=== PATIENT | male | born 1990 | race Caucasian/White ===

== ENCOUNTER 2019-08-20 19:11 | Inpatient (IN) | payer SELFPAY ==
[2019-08-20] VITALS (9 sets, daily range): BP systolic 171–263; BP diastolic 105–175; PULSE 83–103; RESP 15–18; TEMP 36–37.7; O2SAT 97–100; BMI 28.0; BMI 31.0
--- NOTE | 2019-08-20 19:24 | EKG12_ITS ---
Test Reason : OTHER PAIN Blood Pressure : / mmHG Vent. Rate : 105 BPM Atrial Rate : 105 BPM P-R Int : 170 ms QRS Dur : 116 ms QT Int : 338 ms P-R-T Axes : 070 067 260 degrees QTc Int : 446 ms Sinus tachycardia with occasional Premature ventricular complexes Right atrial enlargement Left ventricular hypertrophy with QRS widening and repolarization abnormality Abnormal ECG Confirmed by TREY HERRERA ([id number]), state editor SEBASTIÁN NAVARRETE ([id number]) on 08/23/2019 11:16:04 AM Referred By: NUNU Confirmed By:TREY HERRERA
--- NOTE | 2019-08-20 19:28 | ED.RN ---
NO OLD EKGS IN MUSE
--- NOTE | 2019-08-20 19:30 | ED.DCSUM_ITS ---
History of Present Illness Chief Complaint: Other, Pain/Inj Detail of Chief Complaint: Sided facial/jaw pain Informant: Patient Onset: Today Context: Sudden Onset Timing: Continuous Quality: Pain Location: Proximity of the right TMJ Current Severity: Mild Maximum Severity: Severe - Rated pain 7-8, worse she is ever experienced. Worsened by: Opening closing his mouth Relieved by: Nothing Associated Symptoms: Click Narrative: Patient is a 28-year-old male with no sniffing past medical problems was not seen a doctor in many years. His doctor has retired. He states he was singing. He felt a click and pain which he localizes near the right TMJ. His jaw was not locked open. He feels his teeth are high rising. He denies history of TMJ syndrome. He denies history of dislocated jaw. He denies headache. He denies ocular, visual auditory symptoms. Denies trouble speech or swallowing. Denies neck pain or neck stiffness. He denies chest pain or shortness of breath. He denies nausea or vomiting. He denies paresthesia, anesthesia or motor weakness upper or lower extreme is. Denies problems with balance. He is present on no medication. He takes no herbal supplements. He denies smoking or drinking. There is no family history of hypertension. Prior similar symptoms: No Recent Illness/Hospitalization: No - Past Medical History (1) No significant past medical history Status: Acute Past Medical History - Allergies and Home Meds Allergies/Adverse Reactions: Allergies No Known Allergies Allergy (Verified 08/20/19 19:16) Primary Care Physician: NOT,DEFINED [NON-STAFF] - Prior records reviewed: No Past Medical History: None Surgical History: no surgical history Lives: Alone Smoking Status: Never smoker Alcohol: None Drugs: None Review of Systems General: Denies: Chills, Fever, Malaise, Subjective, Sweats, Weight loss, - Eyes: Denies: Visual changes - bilaterally, Blurred Vision - bilaterally, Diplopia ENT: Reports: Right ear pain Cardiovascular: Denies: Chest pain, Palpitations Respiratory: Denies: Dyspnea, Cough, Dyspnea on exertion Gastrointestinal: Denies: Abdominal pain, Nausea, Vomiting, Diarrhea, Melena, Hematochezia Genitourinary: Denies: Dysuria, Hematuria, Frequency Musculoskeletal: Denies: Myalgias, Arthralgias, Neck pain, Back pain, Swelling, Extremity Pain, -, - Skin: Denies: Rash, Wounds Neurological: Denies: Headache, Weakness, Parasthesia, Numbness, -, - Hematologic: Denies: Easy bruising, Easy bleeding Allergy: Denies: Uticaria, Swelling of the mouth Physical Exam Vital Signs/Narrative: Vital Signs Temp Pulse Resp BP Pulse Ox 08/20/19 19:25 263/175 H 08/20/19 19:12 96.8 F L 86 18 100 Inital Vital Signs reviewed: Yes - Patient had multiple blood pressure readings. Lowest systolic is 251 General: Well nourished, Well developed, No Acute Distress. Negative for: Obese Head: Normocephalic, Atraumatic. Negative for: Trauma, Tenderness Eyes: Perrl, EOMI. Negative for: Pale conjunctiva, Scleral icterus ENT: Moist mucous membranes, No rhinorrhea, TM's clear Neck: Supple, Nontender, No lymphadenopathy, No JVD Cardiovascular: Regular rate, Regular rhythm, No murmurs, Normal S1, Normal S2 Respiratory: No distress, CTA bilaterally, Chest nontender Abdomen: Soft, Nontender, Nondistended, Normal bowel sounds, No masses Back: Nontender, Normal Inspection Extremities: Nontender, No edema Skin: Normal color, No rash, No Trauma. Negative for: Cyanosis, Diaphoresis, Jaundice Neurological: Alert, Oriented x3, Cranial nerves II-XII grossly intact, Normal Strength, Normal Sensation, Normal DTR - There is no clonus or Babinski sign, Normal Gait Psychological: Normal affect, Normal Mood Diagnostic/Tx/Re-eval Laboratory Results 08/20/19 08/20/19 19:30 19:30 WBC 13.7 H RBC 5.30 Hgb 15.9 Hct 45.1 MCV 85.1 MCH 30.0 MCHC 35.3 RDW Std Deviation 38.6 RDW Coeff of Kang 12.6 Plt Count 184 MPV 10.7 Immature Gran % (Auto) 0.200 Neut % (Auto) 76.9 H Lymph % (Auto) 16.5 L [place] % (Auto) 5.7 Eos % (Auto) 0.3 Baso % (Auto) 0.4 Absolute Neuts (auto) 10.6 H Absolute Lymphs (auto) 2.26 Nucleated RBC % 0 Sodium 139 Potassium 3.1 L Chloride 104 Carbon Dioxide 29.0 Anion Gap 6 BUN 17 Creatinine 1.79 H Estim Creat Clear Calc 74.74 Est GFR (MDRD) Af Amer 59 L Est GFR (MDRD) Non-Af 49 L BUN/Creatinine Ratio 9.5 L Glucose 99 Calcium 9.4 There is evidence of endorgan injury with an elevated creatinine of 1.79. Patient was informed he will require admission. Case was discussed with hospitalist. Patient be admitted to PCU. - EKG Initial EKG Interpretation: Sinus Tachycardia - Circular rate is 105. There is evidence of right atrial enlargement. There is evidence of LVH with repolarization abnormality. There is one premature ventricular beat. There is no acute ischemic changes noted. Suspect the hypertrophy is secondary to long-standing undiagnosed hypertension. - Medical Decision Making With blood pressures varying between 250-270 and diastolic of 150-170 will obtain EKG, blood work and urinalysis to assess for endorgan injury. He was treated with 1.25 mg of enalapril IV push. Since he does not complain of headache has no neurologic symptoms and his neuro exam is nonfocal imaging of the head was not obtained. Creatinine is elevated 1.79. There is evidence of LVH. Suspect the elevated creatinine and LVH secondary to undiagnosed hypertension. Patient's blood pressure decreased to 219 systolic after IV lisinopril. He remains tachycardic. For this reason he received 20 mg of labetalol IV push. 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
[2019-08-20] MEDS: Enalaprilat 1.25 MG/ML Vial IV ×2 (19:43→21:30)
[2019-08-20 19:44] LABS: Absolute Lymphocyte Count 2.26 X10^3/uL (0.83-4.51); Absolute Neutrophil Count 10.6 X10^3/uL (2.0-7.7); Basophil# 0.06 X10^3/uL; Basophil% 0.4 % (0-1); Eosinophil# 0.04 X10^3/uL; Eosinophils% 0.3 % (0-5); Hematocrit 45.1 % (40-54); Hemoglobin 15.9 g/dL (13.0-16.5); Lymphocyte # 2.26 X10^3/ul (4.0); Lymphocyte % 16.5 % (19-41); Mean Corp Hgb Conc 35.3 g/dL (32-36); Mean Corpuscular Volume 85.1 fL (80-94); Mean Platelet Vol. 10.7 fl (6.2-12.0); Monocyte# 0.78 X10^3/uL; Monocyte% 5.7 % (0-10); NRBC Flagged by Analyzer 0 % (0-5); Neutrophil # 10.55 X10^3/uL (2.7-7.7); Neutrophil % 76.9 % (47-70); Platelet Count 184 K/mm3 (150-450); RBC Distribution Width CV 12.6 % (11.6-14.6); RBC Distribution Width SD 38.6 fl (35.1-43.9); White Blood Count 13.7 K/mm3 (4.4-11.0)
[2019-08-20 19:54] LABS: Anion Gap 6 (5-15); BUN 17 mg/dL (7-18); BUN/Creat Ratio 9.5 RATIO (10-20); Calcium,Total 9.4 mg/dL (8.5-10.1); Chloride 104 mmol/L (98-107); Creatinine, Serum 1.79 mg/dL (0.70-1.30); EST Glomerular Filtration Rate 49 mL/min (>60); Est Glom Filt Rate - Afr Amer 59 mL/min (>60); Estimated Creatinine Clearance 74.74 ml/min; Glucose 99 mg/dL (74-106); Potassium 3.1 mmol/L (3.5-5.1); Sodium Level 139 mmol/L (136-145)
[2019-08-20 20:54] LABS: Bacteria 0 SEEN /hpf (None Seen); Mucous, Urine 0 SEEN /hpf (<or=2+); Squamous Epithelial Cells - UA 0 SEEN /hpf (0-5)
[2019-08-20 20:55] LABS: Color, Urine Straw (Yellow); Glucose, Dipstick Normal (Normal); Ketone-Dipstick 15 mg/dl (Negative); Leukocyte Esterase-Dipstick Negative /ul (Negative); Nitrite-Dipstick Negative (Negative); Occult Blood-Urine 10 /ul (Negative); Protein-Dipstick 100 mg/dl (Negative); Specific Gravity, Urine 1.015 (1.002-1.030); Urine Bilirubin Dipstick Negative (Negative); Urine Clarity Clear (Clear); Urine Urobilinogen Normal (Normal)
[2019-08-20 21:05] LABS: Hyaline Cast 0-5 SEEN /lpf (0-5)
[2019-08-20 21:07] LABS: Red Blood Cells-Urine 0-5 SEEN /hpf (0-5); White Blood Cells 0-5 SEEN /hpf (0-5)
--- NOTE | 2019-08-20 21:50 | HP.PCM_ITS ---
Problem List (1) Hypertensive urgency Status: Acute History of Present Illness Date of Admission: 08/20/19 Chief Complaint: jaw pain The patient is a 28 year old M was singing on Monday and then felt his jaw pop when it was open wide while he was singing. Had some pain that day and lingered on Monday and then got much worse on Monday. Patient say that is worse when he opens his jaw or if he clenches his teeth. Is never had any issues with that. Just states that he has not felt it popped back. So patient having not seen a physician in several years decided to come to the emergency room for this to be evaluated. What was found in the emergency room was that his blood pressure was extremely high initially measuring 263/175. Patient received 2 rounds of enalaprilat 1.25 mg and 20 mg of labetalol. Those overall helped his blood pressure to 210 systolic. Patient has never had a known history of blood pressure issues. He denies any symptoms associated with his blood pressure, such as headaches, visual changes. [] Past Medical History Medical History: Medical History (Last Updated 08/20/19 @ 21:55 by Julien Mesa DO) CKD (chronic kidney disease), stage III N18.3 HTN (hypertension) I10 Allergies No Known Allergies Allergy (Verified 08/20/19 19:16) Home Medications: Ambulatory Orders Medication Instructions Recorded NK 08/20/19 Surgical History: no surgical history Lives: Alone Smoking Status: Never smoker Alcohol: None Drugs: None - *Family History Maternal Family History: Family History (Last Updated 08/20/19 @ 21:55 by Julien Mesa DO) Uncle Kidney disease Review of Systems Constitutional: Denies: Chills, Fever, Weight Change Eyes: Denies: Blurred vision, Double vision HEENT: Reports: - - right jaw pain. Denies: Head Aches, Sinus Congestion, Sinus Drainage Cardiovascular: Denies: Chest Pain, Palpitations Respiratory: Denies: Cough, Shortness of breath at rest, Sputum production Gastrointestinal: Denies: Abdominal Pain, Nausea, Vomiting Genitourinary: Denies: Dysuria Musculoskeletal: Denies: Joint Pain, Joint Tenderness Skin: Denies: Rash, Wounds Neurological: Denies: Numbness, Tingling, Focal weakness Psychiatric: Denies: Anxiety, Depression Endocrine: Denies: Change in Body Habitus, Heat/ Cold Intolerance Hematologic/ Lymphatic: Denies: Easy Bruising, Easy Bleeding, Hx of blood clot Comment: All review systems are otherwise negative except for as mentioned above and in the HPI. VTE Information - Inpt Only VTE Present on Admission: No VTE Mechan Device Prophylaxis: None VTE Pharm Prophylaxis ordered?: No Reason prophylaxis not ordered:: Procedure Not Indicated Patient Problems: Active and Suspected Problems (Last Updated 08/20/19 @ 21:55 by Julien Mesa DO) Hypertensive urgency (Acute) - Physical Exam Vitals/I&O's: Vital Signs Temp Pulse Resp BP Pulse Ox 36.0 C L 85 15 209/130 H 99 08/20/19 19:12 08/20/19 20:50 08/20/19 20:50 08/20/19 20:50 08/20/19 20:50 Oxygen Delivery Method Room Air Weight: 101.6 kg Body Mass Index (BMI) 28.0 General: Alert, Cooperative, No apparent distress HEENT: Atraumatic, Normocephalic, - - No icterus. Tenderness over the right temporomandibular joint. Oral: Moist Mucosa, No Gingival or Mucosal Lesions/ Ulcerations Neck: No Nodes, Thyroid Normal Size and Texture Lungs: Clear to auscultation, Normal air movement, No rhonchi, No wheeze, No rales Cardiovascular: Regular rate, Regular Rhythm, Normal S1, Normal S2, No murmurs Abdomen: Bowel Sounds Present, Soft, Non Tender, Non-Distended, No Hepato- splenomegaly Extremities: No clubbing, No edema, No Calf Tenderness Skin: No rashes, No breakdown Musculoskeletal: No Tenderness to Palpation of Joints or Extremities, No Muscle Wasting Neurological: Deep Tendon Reflexes 2+/4 and Symmetrical, Sensory exam intact to light touch and pain Psych/Mental Status: Normal Affect, Appropriate Laboratory Results 08/20/19 19:30: WBC 13.7 H, RBC 5.30, Hgb 15.9, Hct 45.1, MCV 85.1, MCH 30.0, MCHC 35.3, RDW Std Deviation 38.6, RDW Coeff of Kang 12.6, Plt Count 184, MPV 10.7, Immature Gran % (Auto) 0.200, Neut % (Auto) 76.9 H, Lymph % (Auto) 16.5 L, [place] % (Auto) 5.7, Eos % (Auto) 0.3, Baso % (Auto) 0.4, Absolute Neuts (auto) 10.6 H, Absolute Lymphs (auto) 2.26, Nucleated RBC % 0 08/20/19 19:30: Sodium 139, Potassium 3.1 L, Chloride 104, Carbon Dioxide 29.0, Anion Gap 6, BUN 17, Creatinine 1.79 H, Estim Creat Clear Calc 74.74, Est GFR (MDRD) Af Amer 59 L, Est GFR (MDRD) Non-Af 49 L, BUN/Creatinine Ratio 9.5 L, Glucose 99, Calcium 9.4 08/20/19 20:45: Urine Color Straw, Urine Clarity Clear, Urine pH 7.0, Ur Specific [place] 1.015, Urine Protein 100 H, Urine Glucose (UA) Normal, Urine Ketones 15 H, Urine Occult Blood 10 H, Urine Nitrite Negative, Urine Bilirubin Negative, Urine Urobilinogen Normal, Ur Leukocyte Esterase Negative, Urine RBC 0-5 SEEN, Urine WBC 0-5 SEEN, Ur Squamous Epith Cells 0 SEEN, Urine Bacteria 0 SEEN, Hyaline Casts 0-5 SEEN, Urine Mucus 0 SEEN EKG reviewed and showed sinus tach with a significant LVH. Assessment/Plan All Active Problems (Last Updated 08/20/19 @ 21:55 by Julien Mesa DO) No significant past medical history (Acute) Hypertensive urgency (Acute) 1. Hypertensive urgency * Blood pressure was extremely high when he presented but he was otherwise asymptomatic from his blood pressure. Blood pressure is significantly improved though still very elevated at 210 systolic. I suspect that this patient has been living in a extremely high blood pressure range for some time. Make that assumption based on the LVH noted on his EKG but also his abnormal creatinine. * We will initiate amlodipine as well as lisinopril. * Continue with labetalol as needed and hydralazine as needed for systolic greater than 200. * Check an echocardiogram and a renal artery duplex 2. Chronic kidney disease stage III * I cannot suspect that this is chronic as I do not have any baseline labs to compare to * Presumably this is related with hypertensive kidney disease * Told patient that he will need to follow-up with a director telemetry as outpatient to follow see if there is been any progression in his kidney disease 3. Suspected TMJ * Patient heard a pop that precipitated all this. Patient does test tenderness over that side on the right. Patient will have acetaminophen and [place] * Not a candidate for NSAIDs given the chronic kidney disease at this time * Recommend patient follow-up with the dentist as outpatient to see if there is anything additional that they would recommend 4. VTE prophylaxis: Low risk as patient is ambulatory. Code Visit Inpatient E&M: 94990 Init Hosp L3
--- NOTE | 2019-08-20 22:00 | ECHOD_ITS ---
Reason For Study: Hypertensive Urgency Procedure This was a 2D Doppler, Color Flow transthoracic echocardiogram. Exam performed portable in patient room. Left Ventricle Severe concentric left ventricular hypertrophy. The estimated ejection fraction is 60 %. Normal diastology for age. No regional wall motion abnormalities noted. Right Ventricle Mildly dilated right ventricle. Normal systolic function. Atria Normal left atrium. Normal right atrium. Normal atrial septum. Mitral Valve The mitral valve is structurally normal. No prolapse or stenosis seen. Mild (1+) eccentric mitral valve insufficiency. Tricuspid Valve Normal tricuspid valve. Mild (1+) tricuspid valve insufficiency. Right ventricular systolic pressure estimated to be 39 mmHg. Mild pulmonary hypertension. Aortic Valve Normal aortic valve. Trisinus/trileaflet aortic valve. Pulmonic Valve Normal pulmonic valve. Great Vessels Normal aortic root. Normal arch. Normal inferior vena cava. Inferior vena cava collapse with sniff. Pericardium/Pleural No pericardial effusion. MMode/2D Measurements & Calculations LVIDd: 4.7 cm IVSd: 1.8 cm Ao root diam: 3.1 cm LVIDs: 3.2 cm LVPWd: 1.7 cm RVDd: 3.9 cm FS: 31.2 % LAV(MOD-bp): 49.0 ml LVAd ap4: 35.9 cm2 SV(MOD-sp4): 75.4 ml LAV(MOD-bp) Indexed: 21.3 ml/m2 EDV(MOD-sp4): 109.3 ml LAV(MOD-sp2): 48.2 ml EDV(sp4-el): 113.6 ml LAV(MOD-sp4): 49.9 ml LVAs ap4: 17.9 cm2 ESV(MOD-sp4): 33.9 ml ESV(sp4-el): 35.6 ml EF(MOD-sp4): 69.0 % EF(sp4-el): 68.6 % SV(sp4-el): 77.9 ml LA A4 area: 17.5 cm2 LA dimension(2D): 4.0 cm RA A4 area: 16.2 cm2 Doppler Measurements & Calculations MV E max carl: 112.7 cm/sec Lat Peak E' Carl: 6.9 cm/sec Med Peak E' Carl: 7.4 cm/sec MV A max carl: 49.2 cm/sec E/E' lat: 16.3 E/E' med: 15.3 MV E/A: 2.3 Ao V2 max: 160.2 cm/sec LV V1 max: 126.3 cm/sec PA V2 max: 129.0 cm/sec Ao max P.3 mmHg LV V1 max P.4 mmHg Ao V2 mean: 113.5 cm/sec Ao mean P.6 mmHg Ao V2 VTI: 26.0 cm TR max carl: 289.4 cm/sec TR max P.5 mmHg Interpretation Summary Severe concentric left ventricular hypertrophy. The estimated ejection fraction is 60 %. Normal diastology for age. Mildly dilated right ventricle. Mild (1+) eccentric mitral valve insufficiency. Mild (1+) tricuspid valve insufficiency. Right ventricular systolic pressure estimated to be 39 mmHg. Mild pulmonary hypertension. There is no comparison study available. Ordering Physician: Julien Mesa Performed By: Precious Vasquez, MERRY, RVT
--- NOTE | 2019-08-20 22:00 | RDU_ITS ---
Reason For Study: HTN Urgency Right Renal Artery Left Renal Artery Right renal artery ostium Left renal artery ostium 97.9/23.3 100.1/32.7 RSV/EDV. PSV/EDV. Right renal artery proximal Left renal artery proximal PSV/EDV 141.5/30.1 PSV/EDV. 79.5/29.6 . Right renal artery mid 118.6/36.2 Left renal artery mid 97.3/27.8 PSV/EDV. PSV/EDV . Right renal artery distal Left renal artery distal 100.1/27.7 114.5/38.3 PSV/EDV. PSV/EDV. Right Renal Parenchyma Left Renal Parenchyma Upper Pole Medula 25.1/10.3 Left upper pole medulla 21.5/9.3 PSV/EDV. PSV/EDV . Right upper pole medulla EDR 0.41 . Left upper pole medulla EDR 0.43 . Right upper pole medulla R.I. Left upper pole medulla R.I. 0.57 . 0.59 . UP Cortex 16.3/6 PSV/EDV. Upper Robin Cortx 16.8/6.8 PSV/EDV. Left upper pole cortex EDR 0.37 . Right upper pole cortex EDR 0.40 . Left upper pole cortex R.I. 0.64 . Right upper pole cortex R.I. 0.60 . Left lower Pole medulla 21.1/8.3 Right lower Pole medulla 21.2/8.5 PSV/EDV . PSV/EDV . Left lower pole medulla EDR 0.39 . Right lower pole medulla EDR 0.40 . Left lower pole medulla R.I. 0.61 . Right lower pole medulla R.I. Lower Pole Cortx 15.4/6.4 PSV/EDV. 0.60 . Left lower pole cortex EDR 0.42 . Lower Pole Cortex 18.6/7.7 PSV/EDV. Left lower pole cortex R.I. 0.58 . Right lower pole cortex EDR 0.41 . Left Renal Hilar Right lower pole cortex R.I. 0.59 . LT Hilar avg 31.7/15.1 PSV/EDV . Right Renal Hilar Left hilar acceleration time 20 Right Hilar avg 27.7/10.2 PSV/EDV. m/sec. Right hilar acceleration time 30 Left Renal Dimensions m/sec. Left kidney size 10.16 cm . Right Renal Dimensions Left cortical dimension 1.93 cm . Right kidney size 10.03 cm . Right cortical dimension 1.5 cm . Aorta Proximal abdominal aorta 1.68 x 1.67 cm . Proximal abdominal aorta peak systolic velocity is 130.8 cm/sec . Distal abdominal aorta 1.71 x 1.70 cm . Distal abdominal aorta peak systolic velocity is 113.2 cm/sec . Interpretation Summary Normal aortic diameter of 1.68 x 1.67 cm proximally and 1.71 x 1.7 cm distally Increased aortic velocity proximally at 130.8 cm/s making renal artery to aortic ratios not valid Less than 60% stenosis right renal artery Less than 60% stenosis left renal artery Right renal size normal 10.03 cm Left renal size normal 10.16 cm Renal resistivity indices are normal bilaterally Ordering Physician: Julien Mesa Performed By: Alix Sharma RVT
[2019-08-20] MEDS: amLODIPine 5 MG Tablet PO (22:21)
[2019-08-20] MEDS: Acetaminophen 325 MG Tablet 650 MG PO (23:35)
[2019-08-21] VITALS (14 sets, daily range): BP systolic 162–203; BP diastolic 89–110; PULSE 77–100; RESP 14–16; TEMP 36.5–37.2; O2SAT 97–99
[2019-08-21 06:15] LABS: ALB/GLOB Ratio 1.1 RATIO (0.9-2.4); AST(SGOT) 17 U/L (15-37); Alanine Aminotransfer ALT/SGPT 23 U/L (16-61); Albumin, Serum 3.5 g/dL (3.2-5.0); Alkaline Phosphatase 87 U/L (45-117); Anion Gap 8 (5-15); BUN 16 mg/dL (7-18); BUN/Creat Ratio 8.6 RATIO (10-20); Chloride 104 mmol/L (98-107); Creatinine, Serum 1.87 mg/dL (0.70-1.30); EST Glomerular Filtration Rate 46 mL/min (>60); Est Glom Filt Rate - Afr Amer 56 mL/min (>60); Globulin 3.1 g/dL (2.2-4.2); Glucose 94 mg/dL (74-106); Magnesium 2.4 mg/dL (1.6-2.6); Potassium 3.3 mmol/L (3.5-5.1); Protein, Total 6.6 g/dL (6.4-8.2); Sodium Level 140 mmol/L (136-145)
[2019-08-21] MEDS: Lisinopril 20 MG Tablet PO (08:07)
[2019-08-21] MEDS: amLODIPine 5 MG Tablet PO (08:07)
--- NOTE | 2019-08-21 11:12 | NURSING ---
This RN taking over patient care at this time.
[2019-08-21 12:00] LABS: Thyroid Stim Hormone (TSH) 0.32 uIU/mL (0.358-3.74)
--- NOTE | 2019-08-21 13:50 | PCM.PROGNOTE ---
<Randi Worley - Last Filed: 08/21/19 14:16> Patient Problems: Active and Suspected Problems (Last Updated 08/20/19 @ 21:55 by Julien Mesa DO) Hypertensive urgency (Acute) Subjective: Patient seen and examined. Blood pressure improving although still above goal. She denies chest pain, headache, shortness of breath, lightheadedness. Does report jaw soreness. Denies other current complaints. - Physical Exam Vitals/I&O's: Vital Signs Temp Pulse Resp BP Pulse Ox 98.5 F 84 14 162/110 H 97 08/21/19 12:41 08/21/19 12:41 08/21/19 12:41 08/21/19 12:41 08/21/19 12:41 Oxygen Delivery Method Room Air Weight: 228 lb 9.91 oz Body Mass Index (BMI) 31.0 Intake and Output for Last 24 Hours 08/19/19 08/20/19 08/21/19 23:59 23:59 23:59 Intake Total 120 / 120 Balance 120 / 120 General: Alert, Oriented x3, Cooperative HEENT: Atraumatic, PERRLA, EOMI, Normocephalic Neck: Supple, No JVD, Negative Carotid Bruits Lungs: Clear to auscultation, Normal air movement Cardiovascular: Regular rate, Regular Rhythm, Normal S1, Normal S2, No murmurs Abdomen: Bowel Sounds Present, Soft, Non Tender, Non-Distended Extremities: No clubbing, No cyanosis, No edema, Capillary Refill Less than 3 Seconds Skin: No rashes, No breakdown Musculoskeletal: No Tenderness to Palpation of Joints or Extremities Neurological: Cranial nerves II-XII grossly intact, Neuro grossly intact Psych/Mental Status: Normal Affect, Appropriate Laboratory Results 08/20/19 19:30: WBC 13.7 H, RBC 5.30, Hgb 15.9, Hct 45.1, MCV 85.1, MCH 30.0, MCHC 35.3, RDW Std Deviation 38.6, RDW Coeff of Kang 12.6, Plt Count 184, MPV 10.7, Immature Gran % (Auto) 0.200, Neut % (Auto) 76.9 H, Lymph % (Auto) 16.5 L, [place] % (Auto) 5.7, Eos % (Auto) 0.3, Baso % (Auto) 0.4, Absolute Neuts (auto) 10.6 H, Absolute Lymphs (auto) 2.26, Nucleated RBC % 0 08/20/19 19:30: Sodium 139, Potassium 3.1 L, Chloride 104, Carbon Dioxide 29.0, Anion Gap 6, BUN 17, Creatinine 1.79 H, Estim Creat Clear Calc 74.74, Est GFR (MDRD) Af Amer 59 L, Est GFR (MDRD) Non-Af 49 L, BUN/Creatinine Ratio 9.5 L, Glucose 99, Calcium 9.4 08/20/19 20:45: Urine Color Straw, Urine Clarity Clear, Urine pH 7.0, Ur Specific [place] 1.015, Urine Protein 100 H, Urine Glucose (UA) Normal, Urine Ketones 15 H, Urine Occult Blood 10 H, Urine Nitrite Negative, Urine Bilirubin Negative, Urine Urobilinogen Normal, Ur Leukocyte Esterase Negative, Urine RBC 0-5 SEEN, Urine WBC 0-5 SEEN, Ur Squamous Epith Cells 0 SEEN, Urine Bacteria 0 SEEN, Hyaline Casts 0-5 SEEN, Urine Mucus 0 SEEN 08/21/19 05:35: Sodium 140, Potassium 3.3 L, Chloride 104, Carbon Dioxide 28.0, Anion Gap 8, BUN 16, Creatinine 1.87 H, Estim Creat Clear Calc 65.70, Est GFR (MDRD) Af Amer 56 L, Est GFR (MDRD) Non-Af 46 L, BUN/Creatinine Ratio 8.6 L, Glucose 94, Calcium 9.0, Magnesium 2.4, Total Bilirubin 1.40 H, AST 17, ALT 23, Alkaline Phosphatase 87, Total Protein 6.6, Albumin 3.5, Globulin 3.1, Albumin/Globulin Ratio 1.1 08/21/19 05:35: TSH 0.32 L Current Medications Acetaminophen (Tylenol) 650 mg PO Q6H PRN PRN PRN Reason: Pain Score 1-3/Temp > 100.7 F Last Admin: 08/20/19 23:35 Dose: 650 mg Documented by: Hydrocodone Bitart/Acetaminophen ([place] 5mg-325mg) 1 tablet PO Q6H PRN PRN PRN Reason: Pain Score 4-5/10 Amlodipine Besylate (Norvasc) 5 mg PO DAILY SARA Last Admin: 08/21/19 08:07 Dose: 5 mg Documented by: Dextrose (D50w Syringe) 0 gm IV X1 PRN; Protocol PRN Reason: Hypoglycemia Glucagon () 1 mg IM .X1 PRN PRN Reason: Hypoglycemia Hydralazine HCl (Apresoline Iv) 10 mg IV Q4H PRN PRN PRN Reason: SBP greater than 200 Labetalol HCl (Trandate) 10 mg IV Q4H PRN PRN PRN Reason: for SBP greater than 200 Lisinopril (Zestril) 20 mg PO DAILY SARA Last Admin: 08/21/19 08:07 Dose: 20 mg Documented by: Melatonin (Melatonin) 3 mg PO QHS PRN PRN PRN Reason: INSOMNIA Ondansetron HCl (Zofran) 4 mg IV Q8H PRN PRN PRN Reason: NAUSEA/VOMITING Sodium Chloride () 10 - 40 ml IV UD PRN PRN Reason: SALINE FLUSH Medical Necessity - Tobacco Use Smoking Status: Never smoker Assessment/Plan All Active Problems (Last Updated 08/20/19 @ 21:55 by Julien Mesa DO) No significant past medical history (Acute) Hypertensive urgency (Acute) 1. Hypertensive urgency-blood pressure improving. Continue amlodipine, lisinopril and as needed hydralazine and labetalol. Echocardiogram shows an EF of 60%, mild mitral valve insufficiency, mild tricuspid valve insufficiency, RVSP estimated to be 39 mmHg. TSH 0.32. T4 ordered. Renin/aldosterone ordered. Renal duplex ultrasound pending. Rule out secondary hypertension including primary kidney disease and primary aldosteronism. Per echo, patient does have mild pulmonary hypertension-recommend outpatient follow-up. 2. Hypokalemia-replace per protocol, trend BMP. 3. Chronic kidney disease stage III-suspect secondary to uncontrolled hypertension. Will need outpatient follow-up with nephrology. 4. Suspected TMJ-PRN pain regimen. Outpatient follow-up with dentist. DVT prophylaxis-not indicated, low risk This patient was seen by FILEMON López under the supervision of Dr. Silva. <Ying Silva - Last Filed: 08/21/19 15:00> - Physical Exam Vitals/I&O's: Vital Signs Temp Pulse Resp BP Pulse Ox 99 F 94 15 163/96 H 97 08/21/19 13:49 08/21/19 13:49 08/21/19 13:49 08/21/19 13:49 08/21/19 13:49 Oxygen Delivery Method Room Air Weight: 103.7 kg Body Mass Index (BMI) 31.0 Intake and Output for Last 24 Hours 08/19/19 08/20/19 08/21/19 23:59 23:59 23:59 Intake Total 120 / 120 Balance 120 / 120 Laboratory Results 08/20/19 19:30: WBC 13.7 H, RBC 5.30, Hgb 15.9, Hct 45.1, MCV 85.1, MCH 30.0, MCHC 35.3, RDW Std Deviation 38.6, RDW Coeff of Kang 12.6, Plt Count 184, MPV 10.7, Immature Gran % (Auto) 0.200, Neut % (Auto) 76.9 H, Lymph % (Auto) 16.5 L, [place] % (Auto) 5.7, Eos % (Auto) 0.3, Baso % (Auto) 0.4, Absolute Neuts (auto) 10.6 H, Absolute Lymphs (auto) 2.26, Nucleated RBC % 0 08/20/19 19:30: Sodium 139, Potassium 3.1 L, Chloride 104, Carbon Dioxide 29.0, Anion Gap 6, BUN 17, Creatinine 1.79 H, Estim Creat Clear Calc 74.74, Est GFR (MDRD) Af Amer 59 L, Est GFR (MDRD) Non-Af 49 L, BUN/Creatinine Ratio 9.5 L, Glucose 99, Calcium 9.4 08/20/19 20:45: Urine Color Straw, Urine Clarity Clear, Urine pH 7.0, Ur Specific [place] 1.015, Urine Protein 100 H, Urine Glucose (UA) Normal, Urine Ketones 15 H, Urine Occult Blood 10 H, Urine Nitrite Negative, Urine Bilirubin Negative, Urine Urobilinogen Normal, Ur Leukocyte Esterase Negative, Urine RBC 0-5 SEEN, Urine WBC 0-5 SEEN, Ur Squamous Epith Cells 0 SEEN, Urine Bacteria 0 SEEN, Hyaline Casts 0-5 SEEN, Urine Mucus 0 SEEN 08/21/19 05:35: Sodium 140, Potassium 3.3 L, Chloride 104, Carbon Dioxide 28.0, Anion Gap 8, BUN 16, Creatinine 1.87 H, Estim Creat Clear Calc 65.70, Est GFR (MDRD) Af Amer 56 L, Est GFR (MDRD) Non-Af 46 L, BUN/Creatinine Ratio 8.6 L, Glucose 94, Calcium 9.0, Magnesium 2.4, Total Bilirubin 1.40 H, AST 17, ALT 23, Alkaline Phosphatase 87, Total Protein 6.6, Albumin 3.5, Globulin 3.1, Albumin/Globulin Ratio 1.1 08/21/19 05:35: TSH 0.32 L 08/21/19 05:35: Free T4 1.01 Current Medications Acetaminophen (Tylenol) 650 mg PO Q6H PRN PRN PRN Reason: Pain Score 1-3/Temp > 100.7 F Last Admin: 08/20/19 23:35 Dose: 650 mg Documented by: Hydrocodone Bitart/Acetaminophen ([place] 5mg-325mg) 1 tablet PO Q6H PRN PRN PRN Reason: Pain Score 4-5/10 Amlodipine Besylate (Norvasc) 10 mg PO DAILY [facility] Dextrose (D50w Syringe) 0 gm IV X1 PRN; Protocol PRN Reason: Hypoglycemia Glucagon () 1 mg IM .X1 PRN PRN Reason: Hypoglycemia Hydralazine HCl (Apresoline Iv) 10 mg IV Q4H PRN PRN PRN Reason: SBP greater than 200 Labetalol HCl (Trandate) 10 mg IV Q4H PRN PRN PRN Reason: for SBP greater than 200 Lisinopril (Zestril) 20 mg PO DAILY SARA Last Admin: 08/21/19 08:07 Dose: 20 mg Documented by: Melatonin (Melatonin) 3 mg PO QHS PRN PRN PRN Reason: INSOMNIA Ondansetron HCl (Zofran) 4 mg IV Q8H PRN PRN PRN Reason: NAUSEA/VOMITING Sodium Chloride () 10 - 40 ml IV UD PRN PRN Reason: SALINE FLUSH Assessment/Plan This patient was seen in conjunction with Randi Worley NP. I have independently interviewed and examined the patient and reviewed pertinent historical, laboratory, and other data. Please refer to her note for patient's presentation, findings, and recommendations. Patient was seen and examined. Denied any new complaints. No chest pain or dizziness or palpitations or headaches or blurred vision BP pressures are a little better. No acute events overnight. Physical Exam: Gen: Comfortable not pale, not jaundiced, alert oriented x3 CVS:HS I +II, regular, no murmurs RESP: Color clear to auscultation GI: BS present and normal, nontender, no palpable organs EXT:No edema Labs reviewed: Hypokalemia ASSESSMENT: 1. Accelerated hypertension, suspect secondary causes of hypertension 2. Hypokalemia 3. CKD stage III 4. Suspected TMJ EKG shows LVH 2D echo shows severe concentric left ventricular hypertrophy EF 60%, mildly dilated right ventricle, RVSP of 39 TSH 0.32, FT4 1.01 Plan: We will follow-up on 2D echo Check free T3 Follow-up on renal artery ultrasound Follow-up on renin and aldosterone studies Replace potassium Repeat blood work in a.m. Code Visit Inpatient E&M: 57590 Subs Hosp L2
--- NOTE | 2019-08-21 13:51 | NURSING ---
Read and reviewed SN documentation
--- NOTE | 2019-08-21 13:56 | CASEMGMT ---
BRIGETTE ABBOTT assessment: Face to Face with patient for initial transition planning/care coordination assessment. BRIGETTE ABBOTT introduced self and role at [facility], pt voices understanding and consents to assessment at this time. Pt is sitting up in bed in no distress at this time. Pt is A/Ox4 at this time and answers all questions appropriately at this time. Care providers, pharmacy, and demographics verified at this time. PCP: Pt has no current PCP but was provided with list of local providers. Specialists: No current specialists. Preferred Pharmacy: [facility] Insurance: SP(pt has [employer] plan) Prescription Benefit: Unknown, would like Rx assist info. E.Delmy SW aware and into room. Living Will/HPOA: Pt states does not have LW/HPOA and declines info at this time. LNOK: Van/Yokasta Valverde, parents Living Arrangements: Pt states lives with parents in 1 story home and states no concerns at home at this time. Pt states is independent with ADL's. Transportation: Pt states drives self and states no transportation concerns at this time. DME/HHC: Pt states no current DME or need for any at this time. Pt states no hx of HHC or SNF in the past. Pt states no concerns with going home at time of discharge. 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 Pt states does not smoke or drink ETOH. Pt states no further concerns/needs at this time. CM to follow for any further discharge planning/needs. Advised pt to ask for CM if any further questions/concerns/needs arise, voices understanding. Pt Goal: Home Plan: [place] BRIGETTE ABBOTT
--- NOTE | 2019-08-21 14:15 | CASEMGMT ---
Patient has some health coverage through his anglican, however he is not sure what all it covers. SW met with patient, introduced self and role at [facility]. SW gave patient a list of local primary care doctors as well as information on [facility]cription [facility], GoodRx, and [email or web address]. Urszula MONTANEZ MSW
[2019-08-21 14:36] LABS: T4 Free Direct 1.01 ng/dL (0.76-1.46)
[2019-08-21 15:25] LABS: Free T3 3.1 pg/mL (2.18-3.98)
[2019-08-21] MEDS: 0.9% Saline Lock 10 ML Syringe IV (16:52)
[2019-08-21] MEDS: hydrALAZINE 20 MG/ML Vial 10 MG IV (16:53)
[2019-08-21] MEDS: Acetaminophen 325 MG Tablet 650 MG PO (22:18)
[2019-08-22] VITALS (18 sets, daily range): BP systolic 168–211; BP diastolic 79–111; PULSE 73–89; RESP 18; TEMP 36.5–37; O2SAT 95–100
[2019-08-22] MEDS: HYDROcodone Bitartrate/Apap 5/325 Tablet PO ×2 (02:23→12:34)
[2019-08-22 05:26] LABS: Absolute Lymphocyte Count 1.89 X10^3/uL (0.83-4.51); Absolute Neutrophil Count 10.2 X10^3/uL (2.0-7.7); Basophil# 0.07 X10^3/uL; Basophil% 0.5 % (0-1); Eosinophil# 0.04 X10^3/uL; Eosinophils% 0.3 % (0-5); Hematocrit 44.6 % (40-54); Hemoglobin 14.9 g/dL (13.0-16.5); Lymphocyte # 1.89 X10^3/ul (4.0); Lymphocyte % 14.4 % (19-41); Mean Corp Hgb Conc 33.4 g/dL (32-36); Mean Corpuscular Hgb 29.2 pg (27.0-32.0); Mean Corpuscular Volume 87.5 fL (80-94); Mean Platelet Vol. 10.9 fl (6.2-12.0); Monocyte# 0.95 X10^3/uL; Monocyte% 7.2 % (0-10); NRBC Flagged by Analyzer 0 % (0-5); Neutrophil # 10.15 X10^3/uL (2.7-7.7); Neutrophil % 77.2 % (47-70); Platelet Count 169 K/mm3 (150-450); RBC Distribution Width CV 12.9 % (11.6-14.6); RBC Distribution Width SD 41.2 fl (35.1-43.9); White Blood Count 13.2 K/mm3 (4.4-11.0)
[2019-08-22 05:34] LABS: AST(SGOT) 13 U/L (15-37); Alanine Aminotransfer ALT/SGPT 21 U/L (16-61); Albumin, Serum 3.5 g/dL (3.2-5.0); Alkaline Phosphatase 91 U/L (45-117); Anion Gap 6 (5-15); BUN 20 mg/dL (7-18); BUN/Creat Ratio 9.7 RATIO (10-20); Chloride 105 mmol/L (98-107); Creatinine, Serum 2.06 mg/dL (0.70-1.30); EST Glomerular Filtration Rate 41 mL/min (>60); Est Glom Filt Rate - Afr Amer 50 mL/min (>60); Estimated Creatinine Clearance 59.64 ml/min; Globulin 3.6 g/dL (2.2-4.2); Glucose 86 mg/dL (74-106); Potassium 3.8 mmol/L (3.5-5.1); Protein, Total 7.1 g/dL (6.4-8.2); Sodium Level 139 mmol/L (136-145)
--- NOTE | 2019-08-22 07:57 | PCM.PN.HOSP ---
Patient Problems: Active and Suspected Problems (Last Updated 08/20/19 @ 21:55 by Julien Mesa DO) Hypertensive urgency (Acute) Vitals/I&O's: Vital Signs Temp Pulse Resp BP Pulse Ox 97.9 F 73 18 169/105 H 99 08/22/19 05:15 08/22/19 06:49 08/22/19 05:15 08/22/19 05:15 08/22/19 05:15 Oxygen Delivery Method Room Air Weight: 103.7 kg Body Mass Index (BMI) 31.0 Intake and Output for Last 24 Hours 08/20/19 08/21/19 08/22/19 23:59 23:59 23:59 Intake Total 600 / 840 270 / 270 Balance 600 / 840 270 / 270 Laboratory Results 08/21/19 05:35: TSH 0.32 L 08/21/19 05:35: Free T4 1.01 08/21/19 05:35: Free T3 pg/dL 3.1 08/22/19 05:00: WBC 13.2 H, RBC 5.10, Hgb 14.9, Hct 44.6, MCV 87.5, MCH 29.2, MCHC 33.4, RDW Std Deviation 41.2, RDW Coeff of Kang 12.9, Plt Count 169, MPV 10.9, Immature Gran % (Auto) 0.400, Neut % (Auto) 77.2 H, Lymph % (Auto) 14.4 L, [place] % (Auto) 7.2, Eos % (Auto) 0.3, Baso % (Auto) 0.5, Absolute Neuts (auto) 10.2 H, Absolute Lymphs (auto) 1.89, Nucleated RBC % 0, Differential Comment Not Reportable 08/22/19 05:00: Sodium 139, Potassium 3.8, Chloride 105, Carbon Dioxide 28.0, Anion Gap 6, BUN 20 H, Creatinine 2.06 H, Estim Creat Clear Calc 59.64, Est GFR (MDRD) Af Amer 50 L, Est GFR (MDRD) Non-Af 41 L, BUN/Creatinine Ratio 9.7 L, Glucose 86, Calcium 9.0, Total Bilirubin 1.70 H, AST 13 L, ALT 21, Alkaline Phosphatase 91, Total Protein 7.1, Albumin 3.5, Globulin 3.6, Albumin/Globulin Ratio 1.0 08/22/19 05:00: Renin Pending, Aldosterone Pending Current Medications Acetaminophen (Tylenol) 650 mg PO Q6H PRN PRN PRN Reason: Pain Score 1-3/Temp > 100.7 F Last Admin: 08/21/19 22:18 Dose: 650 mg Documented by: Hydrocodone Bitart/Acetaminophen ([place] 5mg-325mg) 1 tablet PO Q6H PRN PRN PRN Reason: Pain Score 4-5/10 Last Admin: 08/22/19 02:23 Dose: 1 tablet Documented by: Amlodipine Besylate (Norvasc) 10 mg PO DAILY SARA Dextrose (D50w Syringe) 0 gm IV X1 PRN; Protocol PRN Reason: Hypoglycemia Glucagon () 1 mg IM .X1 PRN PRN Reason: Hypoglycemia Hydralazine HCl (Apresoline Iv) 10 mg IV Q4H PRN PRN PRN Reason: SBP greater than 200 Last Admin: 08/21/19 16:53 Dose: 10 mg Documented by: Labetalol HCl (Trandate) 10 mg IV Q4H PRN PRN PRN Reason: for SBP greater than 200 Lisinopril (Zestril) 20 mg PO DAILY [facility] Last Admin: 08/21/19 08:07 Dose: 20 mg Documented by: Melatonin (Melatonin) 3 mg PO QHS PRN PRN PRN Reason: INSOMNIA Metoprolol Succinate (Toprol Xl (Beta Maya)) 25 mg PO DAILY ON [facility] OF [facility] Ondansetron HCl (Zofran) 4 mg IV Q8H PRN PRN PRN Reason: NAUSEA/VOMITING Sodium Chloride () 10 - 40 ml IV UD PRN PRN Reason: SALINE FLUSH Last Admin: 08/21/19 16:52 Dose: 10 ml Documented by: STROKE Vital Signs/Narrative: Vital Signs Temp Pulse Resp BP Pulse Ox 08/22/19 06:49 73 08/22/19 05:15 97.9 F 75 18 169/105 H 99 Medical Necessity - Tobacco Use Smoking Status: Never smoker Assessment/Plan All Active Problems (Last Updated 08/20/19 @ 21:55 by Julien Mesa DO) No significant past medical history (Acute) Hypertensive urgency (Acute) 1. Accelerated hypertension, suspect secondary causes of hypertension Renal artery ultrasound shows less than 60% stenosis on both the right and left renal arteries. Not likely from hypothyroidism. Renin and aldosterone levels are pending Will continue amlodipine 10 mg daily, metoprolol 50 mg daily, lisinopril 20 mg daily Nephrology consulted 2. Hypokalemia, replaced, recheck in am 3. CKD stage III, Cr is slightly worse, now at 2.06 from 1.87, nephrology consulted 4. Suspected TMJ, patient is able to eat, continue with pain control with Tylenol, PRN oxycodone, PRN morphine. Will need to follow-up with maxillofacial/dental surgery on discharge 5. DVT ppx - early ambulation Code Visit Inpatient E&M: 60624 Subs Hosp L2
[2019-08-22] MEDS: amLODIPine 10 MG Tablet PO (09:21)
[2019-08-22] MEDS: Lisinopril 20 MG Tablet PO ×2 (09:21→18:53)
[2019-08-22] MEDS: Metoprolol(XL)Succ 25 MG Tablet PO (09:22)
[2019-08-22] MEDS: hydrALAZINE 20 MG/ML Vial 10 MG IV (10:51)
[2019-08-22] MEDS: 0.9% Saline Lock 10 ML Syringe IV ×2 (10:52→11:36)
[2019-08-22] MEDS: Labetalol 20 MG/4 ML Vial 10 MG IV (11:36)
[2019-08-22] MEDS: Acetaminophen 325 MG Tablet 650 MG PO (11:42)
[2019-08-22] MEDS: Acetaminophen 500 MG Tablet 1000 MG PO ×2 (14:46→21:31)
--- NOTE | 2019-08-22 15:54 | CON.PCM_ITS ---
Reason for Consult History of Present Illness: The patient is a 28 year old male with no significant past medical history who presented on Monday with pain in the jaw after he heard a pop while he was singing on Monday. His pain got worse so he decided to present to the emergency room. He was found to have a blood pressure of 263/175 given enalaprilat and labetalol and admitted to the floor. He denies any history of hypertension. He denies headaches vision changes focal weakness chest pain shortness of breath lower extremity edema. He denies dysuria hematuria or any history of kidney disease or ever seeing a aerospace mechanic in the past. Except he is on tonight was diagnosed with hypertension at age of 21 but is not aware of the cause he he has no other relatives that were diagnosed with hypertension and a younger age. His father was diagnosed with hypertension is his late 40s and his mother has a slightly elevated blood pressure. He denies any palpitations. His renal arteries which showed less than 60% stenosis on this admission. Any history of sleep apnea.denies h/o illiciti drugs.The patient has no other c/o Past Medical History Medical History: Medical History (Last Updated 08/20/19 @ 21:55 by Julien Mesa DO) CKD (chronic kidney disease), stage III N18.3 HTN (hypertension) I10 Allergies No Known Allergies Allergy (Verified 08/20/19 19:16) Home Medications: Ambulatory Orders Medication Instructions Recorded NK 08/20/19 Surgical History: no surgical history Lives: Alone Smoking Status: Never smoker Alcohol: None Drugs: None - *Family History Maternal Family History: Family History (Last Updated 08/20/19 @ 21:55 by Julien Mesa DO) Uncle Kidney disease Patient Problems: Active and Suspected Problems (Last Updated 08/20/19 @ 21:55 by Julien Mesa DO) Hypertensive urgency (Acute) - Physical Exam Vitals/I&O's: Vital Signs Temp Pulse Resp BP Pulse Ox 97.8 F 76 18 179/96 H 98 08/22/19 09:19 08/22/19 14:59 08/22/19 09:19 08/22/19 13:22 08/22/19 09:19 Oxygen Delivery Method Room Air Weight: 103.7 kg Body Mass Index (BMI) 31.0 Intake and Output for Last 24 Hours 08/20/19 08/21/19 08/22/19 23:59 23:59 23:59 Intake Total 600 / 840 490 / 490 Balance 600 / 840 490 / 490 General: Alert, Oriented x3, Cooperative HEENT: Atraumatic, PERRLA, EOMI, Normocephalic Neck: Supple, No JVD, Negative Carotid Bruits Lungs: Clear to auscultation, Normal air movement Cardiovascular: Regular rate, No murmurs Abdomen: Bowel Sounds Present, Soft, Non Tender Extremities: No edema, Capillary Refill Less than 3 Seconds Skin: No rashes, No breakdown Musculoskeletal: No Tenderness to Palpation of Joints or Extremities Neurological: Cranial nerves II-XII grossly intact Psych/Mental Status: Normal Affect, Appropriate Laboratory Results 08/22/19 05:00: WBC 13.2 H, RBC 5.10, Hgb 14.9, Hct 44.6, MCV 87.5, MCH 29.2, MCHC 33.4, RDW Std Deviation 41.2, RDW Coeff of Kang 12.9, Plt Count 169, MPV 10.9, Immature Gran % (Auto) 0.400, Neut % (Auto) 77.2 H, Lymph % (Auto) 14.4 L, [place] % (Auto) 7.2, Eos % (Auto) 0.3, Baso % (Auto) 0.5, Absolute Neuts (auto) 10.2 H, Absolute Lymphs (auto) 1.89, Nucleated RBC % 0, Differential Comment Not Reportable 08/22/19 05:00: Sodium 139, Potassium 3.8, Chloride 105, Carbon Dioxide 28.0, Anion Gap 6, BUN 20 H, Creatinine 2.06 H, Estim Creat Clear Calc 59.64, Est GFR (MDRD) Af Amer 50 L, Est GFR (MDRD) Non-Af 41 L, BUN/Creatinine Ratio 9.7 L, Glucose 86, Calcium 9.0, Total Bilirubin 1.70 H, AST 13 L, ALT 21, Alkaline Phosphatase 91, Total Protein 7.1, Albumin 3.5, Globulin 3.6, Albumin/Globulin Ratio 1.0 08/22/19 05:00: Renin Pending, Aldosterone Pending Current Medications Acetaminophen (Tylenol) 1,000 mg PO TID SARA Last Admin: 08/22/19 14:46 Dose: 1,000 mg Documented by: Hydrocodone Bitart/Acetaminophen ([place] 5mg-325mg) 1 tablet PO Q6H PRN PRN PRN Reason: Pain Score 4-5/10 Last Admin: 08/22/19 12:34 Dose: 1 tablet Documented by: Amlodipine Besylate (Norvasc) 10 mg PO DAILY [facility] Last Admin: 08/22/19 09:21 Dose: 10 mg Documented by: Dextrose (D50w Syringe) 0 gm IV X1 PRN; Protocol PRN Reason: Hypoglycemia Glucagon () 1 mg IM .X1 PRN PRN Reason: Hypoglycemia Hydralazine HCl (Apresoline Iv) 10 mg IV Q4H PRN PRN PRN Reason: SBP greater than 200 Last Admin: 08/22/19 10:51 Dose: 10 mg Documented by: Labetalol HCl (Trandate) 10 mg IV Q4H PRN PRN PRN Reason: for SBP greater than 200 Last Admin: 08/22/19 11:36 Dose: 10 mg Documented by: Lisinopril (Zestril) 20 mg PO DAILY [facility] Last Admin: 08/22/19 09:21 Dose: 20 mg Documented by: Melatonin (Melatonin) 3 mg PO QHS PRN PRN PRN Reason: INSOMNIA Metoprolol Succinate (Toprol Xl (Beta Maya)) 50 mg PO DAILY [facility] Morphine Sulfate () 2 mg IV Q4H PRN PRN PRN Reason: Pain Score 6-10/10 Ondansetron HCl (Zofran) 4 mg IV Q8H PRN PRN PRN Reason: NAUSEA/VOMITING Oxycodone HCl (Oxyir) 5 mg PO Q4H PRN PRN PRN Reason: Pain Score 6-10/10 Sodium Chloride () 10 - 40 ml IV UD PRN PRN Reason: SALINE FLUSH Last Admin: 08/22/19 11:36 Dose: 10 ml Documented by: Assessment/Plan All Active Problems (Last Updated 08/20/19 @ 21:55 by Julien Mesa DO) No significant past medical history (Acute) Hypertensive urgency (Acute) HTN Hypokalemia CKD 3 The patient likely has secondary hypertension. We will check a TSH PTH ACTH stem test PRA PAC check metanephrines plasma and 24 hour urine metanepnhrines and cortisol and protein Already had negative Doppler of renal arteries with stenosis less than 60%.. Renal ultrasound UA spot urine protein creatinine spep upep will need outpatient sleep study too The EMR is down we will order labs tomorrow. adjust meds to achieve target bp
--- NOTE | 2019-08-22 18:36 | US_ITS ---
STUDY: RENAL ULTRASOUND - COMPLETE REASON FOR EXAM: Male, 28 years old. Chronic kidney disease. TECHNIQUE: Ultrasound evaluation of the kidneys was performed with real-time and static martinez-scale imaging. COMPARISON: None. FINDINGS: RIGHT KIDNEY: Normal location of the right kidney, which is normal in size. The right kidney measures 10.0 x 4.6 x 4.2 cm. There is a normal cortex of the right kidney. The renal cortex measures 1.4 cm. There is no right renal mass or cyst. There are no right renal calculi. There is no right hydronephrosis. DISTAL RIGHT URETER: There is non-visualization of the distal right ureter. There is no demonstrated right ureterovesical junction calculus. There is no demonstrated right ureteral jet. LEFT KIDNEY: Normal location of the left kidney, which is normal in size. The left kidney measures 10.0 x 4.9 x 4.7 cm. There is a normal cortex of the left kidney. The renal cortex measures 1.8 cm. There is no left renal mass or cyst. There are no left renal calculi. There is no left hydronephrosis. DISTAL LEFT URETER: There is non-visualization of the distal left ureter. There is no demonstrated left ureterovesical junction calculus. There is no demonstrated left ureteral jet. BLADDER: The nondistended urinary bladder has a volume of 6.48 ml. There is a normal wall thickness of the distended urinary bladder. There is no demonstrated mass within the urinary bladder. There are no demonstrated bladder calculi. Borderline splenomegaly with a coronal length of 14 cm. US/Kidney and Bladder IMPRESSION: Normal size and symmetric kidneys without hydronephrosis. Unremarkable nondistended urinary bladder. Borderline splenomegaly. Electronically Signed: Kaia Kaye MD at 19:48 EST , Service support ,
[2019-08-22] MEDS: Labetalol 200 MG Tablet PO (21:31)
[2019-08-23] VITALS (7 sets, daily range): BP systolic 131–158; BP diastolic 83–101; PULSE 68–92; RESP 18; TEMP 36.3–36.6; O2SAT 96–98
[2019-08-23] MEDS: Acetaminophen 500 MG Tablet 1000 MG PO ×2 (05:44→13:29)
[2019-08-23] MEDS: Labetalol 200 MG Tablet PO ×2 (05:44→13:29)
[2019-08-23 08:21] LABS: AST(SGOT) 14 U/L (15-37); Alanine Aminotransfer ALT/SGPT 17 U/L (16-61); Albumin, Serum 3.3 g/dL (3.2-5.0); Alkaline Phosphatase 75 U/L (45-117); Anion Gap 7 (5-15); BUN 21 mg/dL (7-18); BUN/Creat Ratio 10.1 RATIO (10-20); Chloride 106 mmol/L (98-107); Creatinine, Serum 2.08 mg/dL (0.70-1.30); EST Glomerular Filtration Rate 41 mL/min (>60); Est Glom Filt Rate - Afr Amer 50 mL/min (>60); Estimated Creatinine Clearance 59.07 ml/min; Globulin 3.3 g/dL (2.2-4.2); Glucose 90 mg/dL (74-106); Potassium 3.8 mmol/L (3.5-5.1); Protein, Total 6.6 g/dL (6.4-8.2); Sodium Level 140 mmol/L (136-145)
[2019-08-23] MEDS: Lisinopril 40 MG Tablet PO (09:01)
[2019-08-23] MEDS: amLODIPine 10 MG Tablet PO (09:01)
--- NOTE | 2019-08-23 12:00 | PCM.PROGNOTE ---
Patient Problems: Active and Suspected Problems (Last Updated 08/20/19 @ 21:55 by Julien Mesa DO) Hypertensive urgency (Acute) - Physical Exam Vitals/I&O's: Vital Signs Temp Pulse Resp BP Pulse Ox 97.9 F 92 18 139/83 H 96 08/23/19 09:00 08/23/19 10:59 08/23/19 09:00 08/23/19 09:00 08/23/19 09:00 Oxygen Delivery Method Room Air Weight: 103.7 kg Body Mass Index (BMI) 31.0 Intake and Output for Last 24 Hours 08/21/19 08/22/19 08/23/19 23:59 23:59 23:59 Intake Total 600 / 840 890 / 1010 120 / 120 Balance 600 / 840 890 / 1010 120 / 120 General: Alert, Oriented x3, Cooperative HEENT: Atraumatic, PERRLA, EOMI, Normocephalic Neck: Supple, No JVD, Negative Carotid Bruits Lungs: Clear to auscultation, Normal air movement Cardiovascular: Regular rate, No murmurs Abdomen: Bowel Sounds Present, Soft, Non Tender Extremities: No edema, Capillary Refill Less than 3 Seconds Skin: No rashes, No breakdown Musculoskeletal: No Tenderness to Palpation of Joints or Extremities Neurological: Cranial nerves II-XII grossly intact Psych/Mental Status: Normal Affect, Appropriate Laboratory Results 08/22/19 05:00: PTH Intact 60.0 08/23/19 05:40: Total Protein (PEP) Pending, IgG Pending, IgA Pending, IgM Pending, Albumin (BILLY) Pending, Albumin/Globulin (BILLY) Pending, Onjhe-6-Vzsgyjllu BILLY Pending, Hjvha-9-Mftbwbqub BILLY Pending, Beta-Globulins (BILLY) Pending, Gamma Globulins (BILLY) Pending, BILLY M-Ricardo Pending 08/23/19 05:40: Cortisol 8.60 08/23/19 05:40: ACTH Pending 08/23/19 05:40: Sodium 140, Potassium 3.8, Chloride 106, Carbon Dioxide 27.0, Anion Gap 7, BUN 21 H, Creatinine 2.08 H, Estim Creat Clear Calc 59.07, Est GFR (MDRD) Af Amer 50 L, Est GFR (MDRD) Non-Af 41 L, BUN/Creatinine Ratio 10.1, Glucose 90, Calcium 9.0, Total Bilirubin 1.00, AST 14 L, ALT 17, Alkaline Phosphatase 75, Total Protein 6.6, Albumin 3.3, Globulin 3.3, Albumin/Globulin Ratio 1.0 Current Medications Acetaminophen (Tylenol) 1,000 mg PO TID [facility] Last Admin: 08/23/19 05:44 Dose: 1,000 mg Documented by: Hydrocodone Bitart/Acetaminophen ([place] 5mg-325mg) 1 tablet PO Q6H PRN PRN PRN Reason: Pain Score 4-5/10 Last Admin: 08/22/19 12:34 Dose: 1 tablet Documented by: Amlodipine Besylate (Norvasc) 10 mg PO DAILY [facility] Last Admin: 08/23/19 09:01 Dose: 10 mg Documented by: Dextrose (D50w Syringe) 0 gm IV X1 PRN; Protocol PRN Reason: Hypoglycemia Glucagon () 1 mg IM .X1 PRN PRN Reason: Hypoglycemia Hydralazine HCl (Apresoline Iv) 10 mg IV Q4H PRN PRN PRN Reason: SBP greater than 200 Last Admin: 08/22/19 10:51 Dose: 10 mg Documented by: Labetalol HCl (Trandate) 200 mg PO TID [facility] Last Admin: 08/23/19 05:44 Dose: 200 mg Documented by: Lisinopril (Zestril) 40 mg PO DAILY [facility] Last Admin: 08/23/19 09:01 Dose: 40 mg Documented by: Melatonin (Melatonin) 3 mg PO QHS PRN PRN PRN Reason: INSOMNIA Morphine Sulfate () 2 mg IV Q4H PRN PRN PRN Reason: Pain Score 6-10/10 Ondansetron HCl (Zofran) 4 mg IV Q8H PRN PRN PRN Reason: NAUSEA/VOMITING Oxycodone HCl (Oxyir) 5 mg PO Q4H PRN PRN PRN Reason: Pain Score 6-10/10 Sodium Chloride () 10 - 40 ml IV UD PRN PRN Reason: SALINE FLUSH Last Admin: 08/22/19 11:36 Dose: 10 ml Documented by: Medical Necessity - Tobacco Use Smoking Status: Never smoker Assessment/Plan All Active Problems (Last Updated 08/20/19 @ 21:55 by Julien Mesa DO) No significant past medical history (Acute) Hypertensive urgency (Acute) HTN Hypokalemia CKD 3 The patient likely has secondary hypertension. f/u TSH PRA PAC metanephrines plasma and 24 hour urine metanepnhrines and cortisol and protein Already had negative Doppler of renal arteries with stenosis less than 60%.. Renal ultrasound normal f/u spot urine protein creatinine spep upep now controlled bp Scr 2 stable will need outpatient sleep study too
--- NOTE | 2019-08-23 12:48 | PCM.DC ---
- Discharge Diagnoses Current Active Problems: Current Active and Chronic Problems (Last Updated 08/20/19 @ 21:55 by Julien Mesa DO) Hypertensive urgency (Acute) Reason(s) for Visit for Discharge Instructions: Elevated BP You will use the following diet at home:: Cardiac Your food should be the consistency of: Regular Your liquids should be the consistency of: Regular/Thin Discharge Activity: Return to Normal Activity Additional Instructions: Continue on a low salt diet. Take all your medications as prescribed. Follow-up with Dr. Wilburn the control tower radio operator in 1 week. Follow-up with your primary care doctor within 1-2 weeks Allergies/Adverse Reactions: Allergies No Known Allergies Allergy (Verified 08/20/19 19:16) Medications to take at Discharge Acetaminophen [Tylenol] 1,000 mg PO TID tablet 08/23/19 Amlodipine [Norvasc] 10 mg PO DAILY #30 tab 08/23/19 Labetalol [Trandate (Beta Maya)] 200 mg PO TID #90 tab 08/23/19 Lisinopril [Zestril] 40 mg PO DAILY #30 tab 08/23/19 The following prescriptions were given: Amlodipine [Norvasc] 10 mg PO DAILY #30 tab Transmission Status: Pending to [id number] Labetalol [Trandate (Beta Maya)] 200 mg PO TID #90 tab Transmission Status: Pending to [id number] Lisinopril [Zestril] 40 mg PO DAILY #30 tab Transmission Status: [facility]ending [id number] Primary Care Physician: NOT,DEFINED [NON-STAFF] - Please follow up with your Primary Care Physician in: within 1-2 weeks Test Results: Test results from this visit will be discussed in further detail at your follow-up appointment, if applicable. Please Follow Up With: Uli Wilburn MD When: in 1 week Proposed Discharge Date: 08/23/19
--- NOTE | 2019-08-23 12:50 | DS.PCM_ITS ---
Discharge Date and Diagnosis Date of Admission: 08/20/19 Date of Discharge: 08/23/19 - Primary Discharge Diagnosis Active and Suspected Problems (Last Updated 08/20/19 @ 21:55 by Julien Mesa DO) Hypertensive urgency (Acute) Hypokalemia Hospital Course and Treatment Imaging Results: Clinical Impression(s) from Imaging Studies Renal Ultrasound 08/22/19 18:36 IMPRESSION: Normal size and symmetric kidneys without hydronephrosis. Unremarkable nondistended urinary bladder. Borderline splenomegaly. Electronically Signed: Kaia Kaye MD at 19:48 EST , Service support , Nephrology - Dr. Wilburn Operations: None Procedures: 2-D Echocardiogram Summary of Care Provided: The patient is a 28 year old M with no significant past medical history presented with right jaw pain that has been ongoing for 3 days. Patient was singing at [employer] when he felt his jaw pop when he was wide open was seen again. He had pain that day but it lingered on and was worse the next day. Pain is worse when he opens his jaw or clenches his teeth. He is felt that he had not popped back. He came to the emergency room to be evaluated and his blood pressure was found to be 263/175. Patient received enalapril as well as labetalol in the emergency department that did not do much his blood pressure. He was admitted to the telemetry floor and managed on oral and IV medications. Nephrology was consulted. Patient admitting EKG showed LVH. 2D echo showed also moderate LVH. He had renal ultrasound that showed less than 60% stenosis. His TSH was 0.32, free T4 was 1.01, free T3 was 3.1. Renal ultrasound was normal. Sports urine protein creatinine, SPEP, UPEP was pending at the time of discharge. Plasma renin activity as well as plasma aldosterone concentration, 24 hour urine epinephrine, total proteins, cortisol were pending at time of discharge. Patient also had underlining chronic kidney disease. His discharge creatinine was 2.08. We will follow-up with nephrology within a week in the outpatient. He was discharged on amlodipine 10 mg, labetalol 200 mg 3 times daily, Lisinopril 40 mg daily. Subjective: On the day of discharge, patient was seen and examined. Denied any new complaints. - Physical Exam Vitals/I&O's: Vital Signs Temp Pulse Resp BP Pulse Ox 97.9 F 92 18 139/83 H 96 08/23/19 09:00 08/23/19 10:59 08/23/19 09:00 08/23/19 09:00 08/23/19 09:00 Oxygen Delivery Method Room Air Weight: 103.7 kg Body Mass Index (BMI) 31.0 Intake and Output for Last 24 Hours 08/21/19 08/22/19 08/23/19 23:59 23:59 23:59 Intake Total 600 / 840 890 / 1010 520 / 520 Output Total 500 / 500 Balance 600 / 840 890 / 1010 General: Alert, Oriented x3, Cooperative, No apparent distress HEENT: Atraumatic, PERRLA, EOMI, Normocephalic Neck: Supple Lungs: Clear to auscultation, Normal air movement Cardiovascular: Regular rate, Regular Rhythm, Normal S1, Normal S2, No murmurs Abdomen: Bowel Sounds Present, Soft, Non Tender, Non-Distended, No Hepato- splenomegaly Extremities: No edema Skin: No rashes, No breakdown Musculoskeletal: No Tenderness to Palpation of Joints or Extremities Lymphatic: No Cervical, Supraclavicular, or Inguinal Adenopathy Neurological: Cranial nerves II-XII grossly intact, Neuro grossly intact Psych/Mental Status: Normal Affect, Appropriate Laboratory Results 08/22/19 05:00: PTH Intact 60.0 08/23/19 05:40: Total Protein (PEP) Pending, IgG Pending, IgA Pending, IgM Pending, Albumin (BILLY) Pending, Albumin/Globulin (BILLY) Pending, Rhjsq-7-Fliqvlbdy BILLY Pending, Rpsrv-9-Nmaclkhmw BILLY Pending, Beta-Globulins (IBLLY) Pending, Gamma Globulins (BILLY) Pending, BILLY M-Ricardo Pending 08/23/19 05:40: Cortisol 8.60 08/23/19 05:40: ACTH Pending 08/23/19 05:40: Sodium 140, Potassium 3.8, Chloride 106, Carbon Dioxide 27.0, Anion Gap 7, BUN 21 H, Creatinine 2.08 H, Estim Creat Clear Calc 59.07, Est GFR (MDRD) Af Amer 50 L, Est GFR (MDRD) Non-Af 41 L, BUN/Creatinine Ratio 10.1, Glucose 90, Calcium 9.0, Total Bilirubin 1.00, AST 14 L, ALT 17, Alkaline Phosphatase 75, Total Protein 6.6, Albumin 3.3, Globulin 3.3, Albumin/Globulin Ratio 1.0 Current Medications Acetaminophen (Tylenol) 1,000 mg PO TID [facility] Last Admin: 08/23/19 05:44 Dose: 1,000 mg Documented by: Hydrocodone Bitart/Acetaminophen ([place] 5mg-325mg) 1 tablet PO Q6H PRN PRN PRN Reason: Pain Score 4-5/10 Last Admin: 08/22/19 12:34 Dose: 1 tablet Documented by: Amlodipine Besylate (Norvasc) 10 mg PO DAILY [facility] Last Admin: 08/23/19 09:01 Dose: 10 mg Documented by: Dextrose (D50w Syringe) 0 gm IV X1 PRN; Protocol PRN Reason: Hypoglycemia Glucagon () 1 mg IM .X1 PRN PRN Reason: Hypoglycemia Hydralazine HCl (Apresoline Iv) 10 mg IV Q4H PRN PRN PRN Reason: SBP greater than 200 Last Admin: 08/22/19 10:51 Dose: 10 mg Documented by: Labetalol HCl (Trandate) 200 mg PO TID [facility] Last Admin: 08/23/19 05:44 Dose: 200 mg Documented by: Lisinopril (Zestril) 40 mg PO DAILY [facility] Last Admin: 08/23/19 09:01 Dose: 40 mg Documented by: Melatonin (Melatonin) 3 mg PO QHS PRN PRN PRN Reason: INSOMNIA Morphine Sulfate () 2 mg IV Q4H PRN PRN PRN Reason: Pain Score 6-10/10 Ondansetron HCl (Zofran) 4 mg IV Q8H PRN PRN PRN Reason: NAUSEA/VOMITING Oxycodone HCl (Oxyir) 5 mg PO Q4H PRN PRN PRN Reason: Pain Score 6-10/10 Sodium Chloride () 10 - 40 ml IV UD PRN PRN Reason: SALINE FLUSH Last Admin: 08/22/19 11:36 Dose: 10 ml Documented by: Discharge Diet: 2000 mg Sodium Diet Discharge Activity: Return to Normal Activity Home Medications: Medications to take at Discharge Acetaminophen [Tylenol] 1,000 mg PO TID tab 08/23/19 Amlodipine [Norvasc] 10 mg PO DAILY #30 tab 08/23/19 Labetalol [Trandate (Beta Maya)] 200 mg PO TID #90 tab 08/23/19 Lisinopril [Zestril] 40 mg PO DAILY #30 tab 08/23/19 Following Prescrptions Were Given to Patient: Amlodipine [Norvasc] 10 mg PO DAILY #30 tab Transmission Status: [id number] Labetalol [Trandate (Beta Maya)] 200 mg PO TID #90 tab Transmission Status: Received [id number] Lisinopril [Zestril] 40 mg PO DAILY #30 tab Transmission Status: Received by [id number] Primary Care Physician: NOT,DEFINED [NON-STAFF] - Please follow up with your Primary Care Physician in: within 1-2 weeks Please Follow Up With: Uli Wilburn MD When: in 1 week Disposition: Home Minutes spent on discharge:: 45 Patient Condition:: Stable Medical Necessity - Tobacco Use Smoking Status: Never smoker Tobacco Use: Non-smoker Meaningful Use Info Meaningful Use Diagnoses (Choose all that apply): None applicable Code Visit Inpatient E&M: 77329 Disch Hosp
--- NOTE | 2019-08-23 13:24 | CASEMGMT ---
SW reviewed patient's discharge medications and checked pricing. SW looked up medications on [facility] and they were in the $20 range. SW spoke with patient letting him know that scripts were sent to [facility] and that if he goes to [facility] he can print coupons to get the meds cheaper. SW offered to print coupons for patient, but he said he could to this. Urszula MONTANEZ MSW
--- NOTE | 2019-08-23 13:46 | CASEMGMT ---
Call to [facility] and per pharmacy sales representative, after running meds through [facility], pt's out of pocket wilson is $63.13. Pt's RN, Bobbi, updated at this time, voices understanding. Zoraida MACHUCA CM
[2019-08-25 01:19] LABS: 24 Hour Urine Protein 666.9 mg/24HR (<150 MG/24HR); 24HR. UA Prot. Total Volume 1900 mL; Urine Protein (24 Hour) 35.1 mg/dL (<11.9)
[2019-08-26 16:30] LABS: Adrenocorticotropic Hormone 12.2 pg/mL (7.2-63.3)
[2019-08-26 20:07] LABS: Albumin 3.3 g/dL (2.9-4.4); Alpha-1-Globulins 0.3 g/dL (0.0-0.4); Alpha-2-Globulins 0.9 g/dL (0.4-1.0); Gamma Globulin 0.9 g/dL (0.4-1.8); Immunoglobulin A 101 mg/dL (90-386); Immunoglobulin G 812 mg/dL (700-1600); Immunoglobulin M 59 mg/dL (20-172); PROEL- TOTAL PROTEIN 6.2 g/dL (6.0-8.5)
[2019-08-27 16:43] LABS: Aldosterone, Serum 1.4 ng/dL (0.0-30.0)
[2019-09-03 14:07] LABS: Alpha-2-Globulins, Ur 5.5 % (.); Beta Globulin, Ur 9.6 % (.); Gamma Globulin, Ur 10.9 % (.); M-Spike, Ur % Not Observed % (Not Observed); Metanephrine, Ur 114 ug/L (Undefined); Normetanephrines, Ur 183 ug/L (Undefined); Protein, 24Ur 511 mg/24 hr (30-150); Total Protein, Ur 26.9 mg/dL (Not Estab.)
[2019-09-04 12:42] LABS: Cortisol, Free 24Ur 10 ug/24 hr (5-64); Cortisol, Urinary Free 5 ug/L (Undefined); Metanephrines, 24Ur 217 ug/24 hr (45-290); Normetanephrines, 24Ur 348 ug/24 hr (82-500)
== END 2019-08-23 14:35 | disposition home or self-care (01) | DRG 305 ==
LOC: ED 20:49 → PCU 21:53
PROVIDERS: Nurse Practitioner Family; Emergency Provider Emergency Medicine; Visit Provider Internal Medicine
DX: I16.0 Hypertensive urgency (principal); N18.3 Chronic kidney disease, stage 3 (moderate); E87.6 Hypokalemia
CPT/HCPCS: 36415; 76770; 80048; 80053; 81001; 81050; 82024; 82088; 82530; 82533; 82784; 83735; 83835; 83970; 84156; 84165; 84166; 84244; 84439; 84443; 84481; 85025; 86334; 86335; 93005; 93306; 93975; 99284; A4216

== ENCOUNTER → 2019-08-24 10:13 | Outpatient (CLI) | payer SELFPAY ==
[2019-08-20 22:01] VITALS: BMI 31.0
== END ==
PROVIDERS: Referring Provider Internal Medicine; Visit Provider Internal Medicine
DX: Z00.00 Encounter for general adult medical examination without abnormal findings (principal)

== ENCOUNTER → 2019-08-26 16:59 | Outpatient (CLI) | payer SELFPAY ==
[2019-08-20 22:01] VITALS: BMI 31.0
[2019-08-26 17:51] LABS: Anion Gap 8 (5-15); BUN 20 mg/dL (7-18); BUN/Creat Ratio 9.5 RATIO (10-20); Chloride 106 mmol/L (98-107); Creatinine, Serum 2.11 mg/dL (0.70-1.30); EST Glomerular Filtration Rate 40 mL/min (>60); Est Glom Filt Rate - Afr Amer 49 mL/min (>60); Glucose 93 mg/dL (74-106); Potassium 4.4 mmol/L (3.5-5.1); Sodium Level 139 mmol/L (136-145)
== END ==
PROVIDERS: Referring Provider Internal Medicine; Visit Provider Internal Medicine
DX: I10 Essential (primary) hypertension (principal)
CPT/HCPCS: 36415; 80048

== ENCOUNTER → 2019-09-20 17:18 | Outpatient (CLI) | payer SELFPAY ==
[2019-08-20 22:01] VITALS: BMI 31.0
[2019-09-20 17:47] LABS: Color, Urine Yellow (Yellow); Glucose, Dipstick Normal (Normal); Ketone-Dipstick Negative (Negative); Leukocyte Esterase-Dipstick Negative /ul (Negative); Nitrite-Dipstick Negative (Negative); Occult Blood-Urine Negative /ul (Negative); Protein-Dipstick 15 mg/dl (Negative); Urine Bilirubin Dipstick Negative (Negative); Urine Clarity Clear (Clear); Urine Urobilinogen Normal (Normal)
[2019-09-20 17:58] LABS: Protein, Urine (Random) 26.4 mg/dL (<11.9); Protein:Creat Ratio 276 mg/g CRE (0-200)
[2019-09-20 18:21] LABS: Anion Gap 4 (5-15); BUN 24 mg/dL (7-18); BUN/Creat Ratio 14.4 RATIO (10-20); Calcium,Total 8.6 mg/dL (8.5-10.1); Chloride 110 mmol/L (98-107); Creatinine, Serum 1.67 mg/dL (0.70-1.30); EST Glomerular Filtration Rate 53 mL/min (>60); Est Glom Filt Rate - Afr Amer 64 mL/min (>60); Glucose 88 mg/dL (74-106); Potassium 4.5 mmol/L (3.5-5.1); Sodium Level 141 mmol/L (136-145)
[2019-09-26 16:07] LABS: PROELU- Albumin, Urine 68.1 % (.); PROELU- Alpha-1-Globulin,Ur 5.1 % (.); PROELU- Alpha-2-Globulin,Ur 6.4 % (.); PROELU- Beta Globulin, Ur 11.5 % (.); PROELU- Gamma Globulin, Ur 8.9 % (.)
== END ==
PROVIDERS: Referring Provider Internal Medicine; Visit Provider Internal Medicine
DX: N18.3 Chronic kidney disease, stage 3 (moderate) (principal); R80.9 Proteinuria, unspecified
CPT/HCPCS: 36415; 80048; 81002; 82570; 84156; 84166

== ENCOUNTER → 2019-10-07 14:27 | Outpatient (CLI) | payer SELFPAY ==
[2019-08-20 22:01] VITALS: BMI 31.0
[2019-10-07 17:02] LABS: Anion Gap 3 (5-15); BUN 20 mg/dL (7-18); Calcium,Total 9.1 mg/dL (8.5-10.1); Chloride 106 mmol/L (98-107); Cholesterol 189 mg/dL (200); Creatinine, Serum 1.67 mg/dL (0.70-1.30); EST Glomerular Filtration Rate 53 mL/min (>60); Est Glom Filt Rate - Afr Amer 64 mL/min (>60); Glucose 86 mg/dL (74-106); High Density Lipoprotein 51 mg/dL; Potassium 4.3 mmol/L (3.5-5.1); Sodium Level 139 mmol/L (136-145); Thyroid Stim Hormone (TSH) 0.12 uIU/mL (0.358-3.74); Triglycerides 64 mg/dL; Very Low Density Lipoprotein 13 mg/dL (5-40)
== END ==
PROVIDERS: Family Provider Family Medicine; PCP Family Medicine; Visit Provider Family Medicine
DX: Z00.00 Encounter for general adult medical examination without abnormal findings (principal); I10 Essential (primary) hypertension
CPT/HCPCS: 36415; 80048; 80061; 84443

== ENCOUNTER → 2019-10-23 07:26 | Outpatient (CLI) | payer SELFPAY ==
[2019-08-20 22:01] VITALS: BMI 31.0
[2019-10-23 08:04] LABS: Anion Gap 3 (5-15); BUN 21 mg/dL (7-18); BUN/Creat Ratio 12.2 RATIO (10-20); Calcium,Total 9.1 mg/dL (8.5-10.1); Chloride 111 mmol/L (98-107); Creatinine, Serum 1.72 mg/dL (0.70-1.30); EST Glomerular Filtration Rate 51 mL/min (>60); Est Glom Filt Rate - Afr Amer 62 mL/min (>60); Glucose 101 mg/dL (74-106); Potassium 4.2 mmol/L (3.5-5.1); Sodium Level 141 mmol/L (136-145)
[2019-10-23 08:25] LABS: Color, Urine Yellow (Yellow); Glucose, Dipstick Normal (Normal); Ketone-Dipstick Negative (Negative); Leukocyte Esterase-Dipstick Negative /ul (Negative); Nitrite-Dipstick Negative (Negative); Occult Blood-Urine Negative /ul (Negative); Protein-Dipstick 15 mg/dl (Negative); Urine Bilirubin Dipstick Negative (Negative); Urine Clarity Sl. Cloudy (Clear); Urine Urobilinogen Normal (Normal)
[2019-10-23 08:36] LABS: Protein, Urine (Random) 27.6 mg/dL (<11.9); Protein:Creat Ratio 166 mg/g CRE (0-200)
[2019-10-25 16:08] LABS: PROELU- Albumin, Urine 59.4 % (.); PROELU- Alpha-1-Globulin,Ur 1.5 % (.); PROELU- Alpha-2-Globulin,Ur 9.8 % (.); PROELU- Beta Globulin, Ur 18.1 % (.); PROELU- Gamma Globulin, Ur 11.2 % (.)
== END ==
PROVIDERS: Family Provider Family Medicine; PCP Family Medicine; Referring Provider Internal Medicine; Visit Provider Internal Medicine
DX: N18.3 Chronic kidney disease, stage 3 (moderate) (principal); R80.9 Proteinuria, unspecified
CPT/HCPCS: 36415; 80048; 81002; 82570; 84156; 84166

== ENCOUNTER → 2019-11-28 10:08 | Outpatient (CLI) | payer SELFPAY ==
[2019-08-20 22:01] VITALS: BMI 31.0
[2019-11-28 13:01] LABS: Free T3 2.8 pg/mL (2.18-3.98); T4 Total, Thyroxin 7.1 ug/dL (4.5-12.1); Thyroid Stim Hormone (TSH) 0.21 uIU/mL (0.358-3.74)
== END ==
PROVIDERS: PCP Family Medicine; Referring Provider Family Medicine; Visit Provider Family Medicine
DX: R79.89 Other specified abnormal findings of blood chemistry (principal)
CPT/HCPCS: 36415; 84436; 84443; 84481

== ENCOUNTER → 2020-04-06 09:51 | Outpatient (CLI) | payer SELFPAY ==
[2019-08-20 22:01] VITALS: BMI 31.0
[2020-04-06 12:14] LABS: Anion Gap 5 (5-15); BUN 19 mg/dL (7-18); Chloride 111 mmol/L (98-107); Cholesterol 183 mg/dL (200); Creatinine, Serum 1.58 mg/dL (0.70-1.30); EST Glomerular Filtration Rate 56 mL/min (>60); Est Glom Filt Rate - Afr Amer 68 mL/min (>60); Glucose 103 mg/dL (74-106); High Density Lipoprotein 56 mg/dL; Potassium 4.6 mmol/L (3.5-5.1); Sodium Level 141 mmol/L (136-145); Triglycerides 58 mg/dL; Very Low Density Lipoprotein 12 mg/dL (5-40)
== END ==
PROVIDERS: PCP Family Medicine; Visit Provider Family Medicine
DX: I10 Essential (primary) hypertension (principal)
CPT/HCPCS: 36415; 80048; 80061

== ENCOUNTER → 2020-05-15 17:50 | Outpatient (CLI) | payer SELFPAY ==
[2019-08-20 22:01] VITALS: BMI 31.0
[2020-05-15 17:52] LABS: Bacteria 0 SEEN /hpf (None Seen); Mucous, Urine 0 SEEN /hpf (<or=2+); Red Blood Cells-Urine 0 SEEN /hpf (0-5); Squamous Epithelial Cells - UA 0 SEEN /hpf (0-5); White Blood Cells 0 SEEN /hpf (0-5)
[2020-05-15 18:04] LABS: Color, Urine Yellow (Yellow); Glucose, Dipstick Normal (Normal); Ketone-Dipstick Negative (Negative); Leukocyte Esterase-Dipstick Negative /ul (Negative); Nitrite-Dipstick Negative (Negative); Occult Blood-Urine Negative /ul (Negative); Protein-Dipstick Negative (Negative); Specific Gravity, Urine 1.005 (1.002-1.030); Urine Bilirubin Dipstick Negative (Negative); Urine Clarity Clear (Clear); Urine Urobilinogen Normal (Normal); Urine pH 6.5 (5.0 - 8.0)
[2020-05-15 18:23] LABS: Protein, Urine (Random) < 6.0 mg/dL (<11.9)
[2020-05-15 18:28] LABS: Anion Gap 4 (5-15); BUN 18 mg/dL (7-18); BUN/Creat Ratio 10.8 RATIO (10-20); Calcium,Total 8.9 mg/dL (8.5-10.1); Chloride 109 mmol/L (98-107); Creatinine, Serum 1.66 mg/dL (0.70-1.30); EST Glomerular Filtration Rate 53 mL/min (>60); Est Glom Filt Rate - Afr Amer 64 mL/min (>60); Glucose 92 mg/dL (74-106); Phosphorus 2.9 mg/dL (2.5-4.9); Potassium 4.4 mmol/L (3.5-5.1); Sodium Level 138 mmol/L (136-145)
[2020-05-15 18:32] LABS: Vitamin D,25 Hydroxy 24.5 ng/mL
[2020-05-19 12:14] LABS: PTHIN 60.9 pg/mL (18.4-80.1)
== END ==
LOC: LAB.FUTURE 05-16 08:16 → LAB 05-16 09:27
PROVIDERS: Referring Provider Internal Medicine; Visit Provider Internal Medicine
DX: N18.3 Chronic kidney disease, stage 3 (moderate) (principal); R80.9 Proteinuria, unspecified
CPT/HCPCS: 36415; 80048; 81001; 82306; 82570; 83970; 84100; 84156

== ENCOUNTER → 2020-08-04 | Outpatient (CLI) | payer SELFPAY ==
[2019-08-20 22:01] VITALS: BMI 31.0
[2020-08-04 18:35] LABS: Color, Urine Yellow (Yellow); Glucose, Dipstick Normal (Normal); Ketone-Dipstick Negative (Negative); Leukocyte Esterase-Dipstick Negative /ul (Negative); Nitrite-Dipstick Negative (Negative); Occult Blood-Urine Negative /ul (Negative); Protein-Dipstick Negative (Negative); Specific Gravity, Urine 1.005 (1.002-1.030); Urine Bilirubin Dipstick Negative (Negative); Urine Clarity Clear (Clear); Urine Urobilinogen Normal (Normal)
[2020-08-04 19:46] LABS: Anion Gap 5 (5-15); BUN 20 mg/dL (7-18); BUN/Creat Ratio 13.3 RATIO (10-20); Calcium,Total 9.3 mg/dL (8.5-10.1); Chloride 107 mmol/L (98-107); EST Glomerular Filtration Rate 59 mL/min (>60); Est Glom Filt Rate - Afr Amer 72 mL/min (>60); Glucose 89 mg/dL (74-106); Potassium 3.9 mmol/L (3.5-5.1); Sodium Level 141 mmol/L (136-145)
[2020-08-04 19:51] LABS: Vitamin D,25 Hydroxy 35.9 ng/mL
[2020-08-04 19:58] LABS: Protein, Urine (Random) < 6.0 mg/dL (<11.9)
[2020-08-05 10:15] LABS: PTHIN 57.5 pg/mL (18.4-80.1)
== END | disposition home or self-care (01) ==
PROVIDERS: Visit Provider Internal Medicine
DX: R80.9 Proteinuria, unspecified (principal); N18.30 Chronic kidney disease, stage 3 unspecified
CPT/HCPCS: 36415; 80048; 81002; 82306; 82570; 83970; 84156

== ENCOUNTER → 2020-10-15 09:23 | Outpatient (CLI) | payer SELFPAY ==
[2019-08-20 22:01] VITALS: BMI 31.0
[2020-10-15 11:27] LABS: Anion Gap 3 (5-15); BUN 23 mg/dL (7-18); BUN/Creat Ratio 14.7 RATIO (10-20); Calcium,Total 9.3 mg/dL (8.5-10.1); Chloride 109 mmol/L (98-107); Creatinine, Serum 1.56 mg/dL (0.70-1.30); EST Glomerular Filtration Rate 57 mL/min (>60); Est Glom Filt Rate - Afr Amer 69 mL/min (>60); Glucose 92 mg/dL (74-106); Potassium 4.5 mmol/L (3.5-5.1); Sodium Level 139 mmol/L (136-145)
== END ==
PROVIDERS: Referring Provider Family Medicine; Visit Provider Family Medicine
DX: I10 Essential (primary) hypertension (principal)
CPT/HCPCS: 36415; 80048

== ENCOUNTER → 2021-05-10 09:33 | Outpatient (CLI) | payer SELFPAY ==
[2019-08-20 22:01] VITALS: BMI 31.0
[2021-05-10 10:45] LABS: Anion Gap 5 (5-15); BUN 17 mg/dL (7-18); BUN/Creat Ratio 12.5 RATIO (10-20); Calcium,Total 9.3 mg/dL (8.5-10.1); Chloride 107 mmol/L (98-107); Cholesterol 164 mg/dL (200); Creatinine, Serum 1.36 mg/dL (0.70-1.30); EST Glomerular Filtration Rate 66 mL/min (>60); Est Glom Filt Rate - Afr Amer 80 mL/min (>60); Glucose 95 mg/dL (74-106); High Density Lipoprotein 48 mg/dL; Potassium 4.5 mmol/L (3.5-5.1); Sodium Level 138 mmol/L (136-145); Triglycerides 53 mg/dL; Very Low Density Lipoprotein 11 mg/dL (5-40)
== END ==
PROVIDERS: PCP Family Medicine; Referring Provider Family Medicine; Visit Provider Family Medicine
DX: I10 Essential (primary) hypertension (principal)
CPT/HCPCS: 36415; 80048; 80061

== ENCOUNTER → 2022-12-29 | Outpatient (CLI) | payer SELFPAY ==
[2022-12-29 13:01] LABS: Anion Gap 4 (5-15); BUN 20 mg/dL (7-18); BUN/Creat Ratio 16.7 RATIO (10-20); Calcium,Total 9.2 mg/dL (8.5-10.1); Chloride 106 mmol/L (98-107); Cholesterol 178 mg/dL (200); EST Glomerular Filtration Rate 75 mL/min (>60); Est Glom Filt Rate - Afr Amer 91 mL/min (>60); Glucose 95 mg/dL (74-106); High Density Lipoprotein 51 mg/dL; Potassium 4.7 mmol/L (3.5-5.1); Sodium Level 139 mmol/L (136-145); Triglycerides 66 mg/dL; Very Low Density Lipoprotein 13 mg/dL (5-40)
== END | disposition home or self-care (01) ==
PROVIDERS: PCP Family Medicine; Referring Provider Family Medicine; Visit Provider Family Medicine
DX: Z00.00 Encounter for general adult medical examination without abnormal findings (principal)
CPT/HCPCS: 36415; 80048; 80061

== ENCOUNTER → 2024-05-30 | Outpatient (CLI) | payer SELFPAY ==
[2024-05-30 15:45] LABS: ALB/GLOB Ratio 1.1 RATIO (0.9-2.4); AST(SGOT) 16 U/L (15-37); Alanine Aminotransfer ALT/SGPT 36 U/L (16-61); Albumin, Serum 3.6 g/dL (3.2-5.0); Alkaline Phosphatase 97 U/L (45-117); Anion Gap 8 (5-15); BUN 17 mg/dL (7-18); BUN/Creat Ratio 12.1 RATIO (10-20); Calcium,Total 8.9 mg/dL (8.5-10.1); Chloride 109 mmol/L (98-107); Creatinine, Serum 1.41 mg/dL (0.70-1.30); EST Glomerular Filtration Rate 62 mL/min (>60); Est Glom Filt Rate - Afr Amer 75 mL/min (>60); Globulin 3.2 g/dL (2.2-4.2); Glucose 104 mg/dL (74-106); Protein, Total 6.8 g/dL (6.4-8.2); Sodium Level 140 mmol/L (136-145); Thyroid Stim Hormone (TSH) 0.116 uIU/mL (0.358-3.740)
== END | disposition home or self-care (01) ==
PROVIDERS: PCP Family Medicine; Visit Provider Family Medicine
DX: E66.9 Obesity, unspecified (principal); I10 Essential (primary) hypertension
CPT/HCPCS: 36415; 80053; 84443

== ENCOUNTER → 2025-07-07 | Outpatient (CLI) | payer SELFPAY ==
[2025-07-07 11:23] LABS: AST(SGOT) 37 U/L (<=37); Alanine Aminotransfer ALT/SGPT 102 U/L (<=46); Albumin, Serum 4.3 g/dL (3.5-5.0); Alkaline Phosphatase 108 U/L (40-129); Anion Gap 11 (5-15); BUN 19 mg/dL (4-19); BUN/Creat Ratio 13.3 RATIO (10-20); Calcium,Total 9.5 mg/dL (7.6-11.0); Carbon Dioxide 22.8 mmol/L (21.0-32.0); Chloride 104 mmol/L (98-108); Cholesterol 207 mg/dL (<=200); Globulin 2.6 g/dL (2.2-4.2); Glucose 91 mg/dL (70-99); Low Density Lipoprotein Calc. 142 mg/dL; Potassium 4.7 mmol/L (3.3-5.1); Triglycerides 93 mg/dL; Very Low Density Lipoprotein 19 mg/dL (5-40); cholesterol:hdl ratio screen 4.44
== END | disposition home or self-care (01) ==
LOC: MFPLAB 08:27
PROVIDERS: PCP Family Medicine; Visit Provider Family Medicine
DX: I10 Essential (primary) hypertension (principal); E66.9 Obesity, unspecified
CPT/HCPCS: 36415; 80053; 80061; 84403; 84443